=== PATIENT | male | born 1985 | race Caucasian/White ===

== ENCOUNTER 2025-07-17 08:36 | Outpatient (CLI) | payer OTHER, SELFPAY ==
--- NOTE | 2025-07-17 09:00 | CRLHL7_ITS ---
For Patients: As a result of the Century Cures Act, medical imaging exams and procedure reports are released immediately into your electronic medical record. You may view this report before your referring provider. If you have questions, please contact your health care provider. Indication: Chronic sinusitis. Technique: Noncontrast axial CT of the paranasal sinuses with coronal reformats are provided. No comparisons. Findings: Mild mucosal thickening within the floor of the maxillary sinuses. Mild mucosal thickening within scattered ethmoid air cells and within the frontoethmoidal recesses. The remainder of the visualized paranasal sinuses are clear. The ostiomeatal complexes are patent bilaterally. The visualized intraorbital contents appear within normal limits. Moderate rightward nasal septal deviation with bony spur contacting the inferior right turbinate. Impression: 1. Mild ethmoid and maxillary sinusitis. 2. Moderate rightward nasal septal deviation with bony spur contacting the inferior right turbinate. Please note that all CT scans at this facility use dose modulation, iterative reconstruction, and/or weight-based dosing when appropriate to reduce radiation dose to as low as reasonably achievable. Dictated by Paul Pena MD @ 07/17/2025 3:33:17 PM (Electronically Signed)
== END 2025-07-17 08:37 | disposition home or self-care (01) ==
LOC: CT 08:37
PROVIDERS: PCP Family Medicine; Visit Provider Family Medicine
DX: J32.9 Chronic sinusitis, unspecified (principal); J32.0 Chronic maxillary sinusitis; J34.2 Deviated nasal septum
CPT/HCPCS: 70486